=== PATIENT | male | born 1995 | race Caucasian/White ===

== ENCOUNTER 2017-12-20 03:51 | Emergency (ER) | payer SELFPAY, OTHER ==
[2017-12-20] MEDS: ONDANSETRON (ODT) 4 MG TAB ODT (06:46)
== END 2017-12-20 08:43 | disposition home or self-care (01) ==
LOC: E/R 08:43
DX: F10.920 Alcohol use, unspecified with intoxication, uncomplicated (principal)
CPT/HCPCS: 99283